=== PATIENT | female | born 1990 | race Caucasian/White ===

== ENCOUNTER 2019-07-15 11:53 | Emergency (ER) | payer OTHER ==
[~2019-07-15] VITALS: Ht 149.9 cm; Wt 83.9 kg
[2019-07-15 12:00] VITALS: BP 123/66
[2019-07-15] MEDS: ACETAMINOPHEN EXTRA STRENGTH 500 MG TAB PO ONE (12:35)
[2019-07-15] MEDS: PHENAZOPYRIDINE 100 MG TAB PO ONE (12:36)
[2019-07-15 13:15] LABS: BASOPHILS % (AUTO) 0.1 % (0.0-2.0); EOSINOPHILS % (AUTO) 0.5 % (0.0-4.0); HEMATOCRIT 25.7 % (36-48); HEMOGLOBIN 7.8 g/dL (12.0-16.0); LYMPHOCYTES # (AUTO) 1.1 K/uL (2.5-16.5); LYMPHOCYTES % (AUTO) 18.5 % (20.5-51.1); MEAN CORPUSCULAR HEMOGLOBIN 19 pg (27-31); MEAN CORPUSCULAR HGB CONC 31 g/dL (33-37); MEAN CORPUSCULAR VOLUME 61.9 fL (80-94); MONOCYTES # (AUTO) 0.5 K/uL (0.8-1.0); MONOCYTES % (AUTO) 7.8 % (1.7-9.3); NEUTROPHILS # (AUTO) 4.3 K/uL (1.8-7.7); NEUTROPHILS % (AUTO) 73.1 % (42.2-75.2); PLATELET COUNT (AUTO) 185 K/uL (140-450); RED BLOOD CELL COUNT(AUTO) 4.15 MIL/uL (4.20-5.40); RED CELL DISTRIBUTION WIDTH 18.7 % (11.6-13.7); WHITE BLOOD COUNT (AUTO) 5.9 K/uL (4.8-10.8)
[2019-07-15 13:22] LABS: BILIRUBIN,URINE NEGATIVE (NEGATIVE); BLOOD, URINE NEGATIVE (NEGATIVE); COLOR,URINE YELLOW (YELLOW); LEUKOCYTE ESTERASE ,URINE 1+ (NEGATIVE); NITRITE, URINE NEGATIVE (NEGATIVE); PH,URINE 5.5 (5.0-9.0); UGLUCOSE NEGATIVE (NEGATIVE)
[2019-07-15 13:29] LABS: APPEARANCE,URINE HAZY (CLEAR); RBC,URINE 0-5 /HPF (0-5)
[2019-07-15 13:43] LABS: ANION GAP 12.6 (8-16); CARBON DIOXIDE 22.7 mmol/L (21-32); CREATININE 0.4 mg/dL (0.6-1.3); POTASSIUM 3.3 mmol/L (3.5-5.1)
[2019-07-15 14:18] VITALS: BP 126/74
== END 2019-07-15 14:18 | disposition home or self-care (01) ==
LOC: MED 11:53
DX: O23.41 Unspecified infection of urinary tract in pregnancy, first trimester (principal); Z3A.09 9 weeks gestation of pregnancy
CPT/HCPCS: 36415; 76801; 80048; 81001; 81025; 84702; 85025; 86900; 86901; 87086; 99284; Q0092

== ENCOUNTER 2019-11-26 12:33 | Emergency (ER) | payer OTHER ==
[~2019-11-26] VITALS: Ht 149.9 cm; Wt 88.5 kg
[2019-11-26 12:43] VITALS: BP 125/79
[2019-11-26 13:50] VITALS: BP 114/72
--- NOTE | 2019-11-26 13:50 | NUR ---
Patient discharged with v/s stable. Written and verbal after care instructions given and explained. Patient alert, oriented and verbalized understanding of instructions. Ambulatory with steady gait. All questions addressed prior to discharge. ID band removed. Patient advised to follow up with PMD. Rx of BENADRYL 12.5MG/5ML given. Patient educated on indication of medication including possible reaction and side effects. Opportunity to ask questions provided and answered.
== END 2019-11-26 13:50 | disposition home or self-care (01) ==
LOC: MED 12:33
DX: O26.892 Other specified pregnancy related conditions, second trimester (principal); R05 Cough; D64.9 Anemia, unspecified; Z3A.21 21 weeks gestation of pregnancy
CPT/HCPCS: 99282